=== PATIENT | male | born 1950 ===

== ENCOUNTER 2019-07-27 17:01 | Emergency (ER) | payer SELFPAY ==
[~2019-07-27] VITALS: Ht 162.6 cm; Wt 63.6 kg
[2019-07-27] MEDS ORDERED: ATOR10TA84 PO (17:15)
[2019-07-27] MEDS ORDERED: ASPI81 PO (17:15)
[2019-07-27] MEDS ORDERED: LISI-661 PO (17:15)
[2019-07-27] MEDS ORDERED: ONDANSETRON HCL 4 MG/2 ML VIAL IVP ONE (18:15)
[2019-07-27] MEDS ORDERED: SODIUM CHLORIDE 0.9% 1,000 ML IV ONE (18:15)
[2019-07-27] MEDS ORDERED: ACETAMINOPHEN 500 MG TABLET PO ONE (18:15)
[2019-07-27 18:29] LABS: BASOPHILS % (AUTO) 1.3 % (0.0-2.0); EOSINOPHILS % (AUTO) 14.9 % (1.0-6.0); HEMOGLOBIN 14.1 g/dL (13.5-17.5); LYMPHOCYTES # (AUTO) 1.7 K/uL (1.0-4.8); LYMPHOCYTES % (AUTO) 22.6 % (22.0-44.0); MEAN CORPUSCULAR HEMOGLOBIN 30.4 pg (26.0-34.0); MEAN CORPUSCULAR HGB CONC 33.6 G/dL (31.0-37.0); MEAN CORPUSCULAR VOLUME 90 fL (80-100); MONOCYTES # (AUTO) 0.6 K/uL (0.1-1.0); MONOCYTES % (AUTO) 8.4 % (2.0-9.0); NEUTROPHILS % (AUTO) 52.8 % (40.0-70.0); PLATELET COUNT (AUTO) 266 K/uL (150-450); RED BLOOD CELL COUNT(AUTO) 4.65 MIL/uL (4.50-5.90); RED CELL DISTRIBUTION WIDTH 13.5 % (11.5-14.5)
[2019-07-27 18:41] LABS: ANION GAP 9 mmol/L (8-16); CALCIUM, TOTAL 8.5 mg/dL (8.8-10.5); CARBON DIOXIDE 26 mmol/L (22-29); CHLORIDE 102 mmol/L (98-107); CREATININE 1.02 mg/dL (0.60-1.30); GLOMERULAR FILTR. RATE CALC > 60 mL/min (>60); GLUCOSE,RANDOM 100 mg/dL (70-110); POTASSIUM 4.3 mmol/L (3.5-5.1); SODIUM SERUM 137 mmol/L (136-145); UREA NITROGEN, BLOOD 23 mg/dL (7-18)
[2019-07-27 19:16] VITALS: BP 135/69
== END 2019-07-27 19:45 | disposition home or self-care (01) ==
LOC: EMS 17:04
DX: R51 Headache (principal); R42 Dizziness and giddiness; R11.0 Nausea; E78.00 Pure hypercholesterolemia, unspecified; I10 Essential (primary) hypertension; F17.210 Nicotine dependence, cigarettes, uncomplicated; Z79.899 Other long term (current) drug therapy; Z79.82 Long term (current) use of aspirin
CPT/HCPCS: 36415; 70450; 80048; 85025; 93005; 96361; 96374; 99284; J2405; J7030